=== PATIENT | male | born 1945 | race Two or more races ===

== ENCOUNTER 2022-08-04 05:30 | Day surgery (SDC) | payer OTHER ==
[~2022-08-04] VITALS: Ht 167.6 cm; Wt 72.6 kg
[~2022-08-04 05:30] MED LIST: CELEBREX50 MG PO; HYDROXYCHLOROQUINE; JANUMET 50-1,01 EACH PO; ORAPRED ODT10 MG PO; SYNTHROID100 MCG PO; TREXALL5 MG PO
[2022-08-04] MEDS ORDERED: OXYC1TAB9 PO (09:58)
== END 2022-08-04 12:30 | disposition home or self-care (01) ==
LOC: CIR.AMB 05:30
PROVIDERS: ATTEND Surgery
DX: K64.8 Other hemorrhoids (principal); K64.4 Residual hemorrhoidal skin tags; K62.5 Hemorrhage of anus and rectum; Z86.16 Personal history of COVID-19; E11.9 Type 2 diabetes mellitus without complications; E03.9 Hypothyroidism, unspecified

== ENCOUNTER 2023-08-22 11:15 | Inpatient (IN) | payer OTHER ==
[~2023-08-22] VITALS: Ht 167.6 cm; Wt 68.9 kg
[~2023-08-22 11:15] MED LIST changes: +OXYC1TAB9 PO
[2023-08-29] MEDS ORDERED: METRONIDAZOLE/SODIUM CHLORIDE 500 MG/100 ML PIGGYBACK IV ONE ×2 (06:52→08:15)
[2023-08-29] MEDS ORDERED: CEFTRIAXONE SODIUM 2,000 MG VIAL ONE (06:52)
[2023-08-29] MEDS ORDERED: LIDOCAINE HCL/EPINEPHRINE 10MG/ML 1% 50ML IJ ONE ×2 (07:00→08:15)
[2023-08-29] MEDS ORDERED: BUPIVACAINE HCL/PF 0.5% 30ML ML ONE (07:00)
[2023-08-29] MEDS ORDERED: HYDROCORTISONE SODIUM SUCC/PF 100 MG VIAL ONE ×2 (07:07→13:07)
[2023-08-29] MEDS ORDERED: CEFTRIAXONE SODIUM 2,000 MG VIAL IV ONE (08:15)
[2023-08-29] MEDS ORDERED: BUPIVACAINE HCL 30 ML VIAL IJ ONE (08:15)
[2023-08-29] MEDS ORDERED: HYDROCORTISONE SODIUM SUCC/PF 100 MG VIAL IV ONE (08:15)
[2023-08-29] MEDS ORDERED: OxyCODONE HCL 5 MG TABLET (ROXICODONE) PO PRN (09:15)
[2023-08-29] MEDS ORDERED: ONDANSETRON HCL 2 MG/ML VIAL IV PRN (09:15)
[2023-08-29] MEDS ORDERED: RINGERS SOLUTION,LACTATED 1,000 ML IV SCH (09:15)
[2023-08-29] MEDS ORDERED: DEXTROSE 50 % IN WATER 0.5 G/ML DISP.SYRIN IV PRN ×2 (09:15→11:00)
[2023-08-29] MEDS ORDERED: INSULIN LISPRO 1,000 UNIT/10 ML UNITS SUBCUTANEO PRN ×2 (09:15→11:00)
[2023-08-29] MEDS ORDERED: MORPHINE SULFATE 4 MG/ML CARTRIDGE IV PRN (09:15)
[2023-08-29] MEDS ORDERED: MORPHINE SULFATE 4 MG/ML VIAL IV ONE (11:35)
[2023-08-29] MEDS ORDERED: ONDANSETRON HCL 2 MG/ML VIAL ONE (11:38)
[2023-08-29 11:55] LABS: HEMATOCRIT 28.5 % (39.0-48.0); HEMOGLOBIN 9.4 g/dL (13-16.00); MEAN CORPUSCULAR HEMOGLOBIN 26.4 pg (27.00-32.0); PLATELET COUNT 392 K/uL (150-450); RED BLOOD COUNT 3.56 M/uL (4.00-6.00); RED CELL DISTRIBUTION WIDTH 19.8 % (11.5-14.5)
[2023-08-29] MEDS ORDERED: HYDROCORTISONE SODIUM SUCC/PF 100 MG VIAL IV SCH (12:00)
[2023-08-29 12:33] LABS: ABG PH 7.359 (7.35-7.45); ABG PO2 64.7 mmHg (80-100); ABG pCO2 43.5 mmHg (35-45); BASE EXCESS -1.6 mmol/l; SaO2 91.2 %; Tco2 25.3 mmol/l; allen test SATISFACTORY; o2 21 %; puncture site RADIAL LEFT
[2023-08-29 12:37] LABS: ALBUMIN 2.5 gm/dL (3.4-5.0); CALCIUM 8.7 mg/dL (8.5-10.1); GFR 72.65; MAGNESIUM 1.8 mg/dL (1.8-2.4); PHOSPHOROUS 3.8 mg/dL (2.5-4.9); POTASSIUM 4.72 mEq/L (3.5-5.1)
[2023-08-29] MEDS ORDERED: HYOSCYAMINE SULFATE 0.125 MG TAB.SUBL SL SCH (13:00)
[2023-08-29] MEDS ORDERED: HYOSCYAMINE SULFATE 0.125 MG TAB.SUBL ONE (13:26)
[2023-08-29] MEDS ORDERED: ACETAMINOPHEN 500 MG GEL..CAP PO SCH (14:00)
[2023-08-29] MEDS ORDERED: POLYETHYLENE GLYCOL 3350 17 GM BLIST.PACK PO SCH (17:00)
[2023-08-29] MEDS ORDERED: GABAPENTIN 300 MG CAPSULE PO SCH (17:00)
[2023-08-29 17:19] LABS: ABG PH 7.379 (7.35-7.45); ABG PO2 102.4 mmHg (80-100); ABG pCO2 43.1 mmHg (35-45); BASE EXCESS -0.4 mmol/l; BICARBONATE 24.9 mmol/l (23-25); SaO2 97.7 %; Tco2 26.2 mmol/l
[2023-08-29 17:20] LABS: allen test SATISFACTORY; o2 28 %; puncture site RADIAL RIGHT
[2023-08-29] MEDS ORDERED: CELECOXIB 200 MG CAPSULE PO SCH (21:00)
[2023-08-29] MEDS ORDERED: FAMOTIDINE/PF 20 MG/2 ML VIAL IV PUSH SCH (21:00)
[2023-08-29] MEDS ORDERED: TAMSULOSIN HCL 0.4 MG CAP PO SCH (21:00)
[2023-08-30] MEDS ORDERED: PATIENTS OWN MEDICATION (MEDICAMENTO EN PISO) PO SCH (06:00)
[2023-08-30 06:17] LABS: HEMATOCRIT 27.3 % (39.0-48.0); MEAN CELL VOLUME 81.5 fL (80.0-100.00); MEAN CORPUSCULAR HGB CONC 32.4 g/dl (32.0-36.0); PLATELET COUNT 370 K/uL (150-450); RED BLOOD COUNT 3.35 M/uL (4.00-6.00)
[2023-08-30 06:41] LABS: MEAN CORPUSCULAR HEMOGLOBIN 26.2 pg (27.00-32.0)
[2023-08-30 06:42] LABS: HEMOGLOBIN 8.8 g/dL (13-16.00)
[2023-08-30 06:57] LABS: ALBUMIN 2.3 gm/dL (3.4-5.0); CALCIUM 8.6 mg/dL (8.5-10.1); CREATININE SERUM 0.91 mg/dL (0.70-1.30); MAGNESIUM 1.8 mg/dL (1.8-2.4); PHOSPHOROUS 3.3 mg/dL (2.5-4.9); POTASSIUM 4.67 mEq/L (3.5-5.1)
[2023-08-30] MEDS ORDERED: Cyanocobalamin/Mecobalamin 1 TAB.SL SL SCH (09:00)
[2023-08-30] MEDS ORDERED: SOD FERRIC GLUC COMPLX/SUCROSE 62.5 MG in 0.9 % SODIUM CHLORIDE 50 ML IV SCH (09:00)
[2023-08-30] MEDS ORDERED: HYDROCORTISONE SODIUM SUCC/PF 100 MG VIAL IV SCH (12:00)
[2023-08-30] MEDS ORDERED: ENOXAPARIN SODIUM 40 MG/0.4 ML SYRINGE SUBCUTANEO SCH (17:00)
[2023-08-31 08:07] LABS: HEMATOCRIT 25.9 % (39.0-48.0); MEAN CELL VOLUME 80.4 fL (80.0-100.00); MEAN CORPUSCULAR HGB CONC 33.7 g/dl (32.0-36.0); PLATELET COUNT 350 K/uL (150-450); RED BLOOD COUNT 3.22 M/uL (4.00-6.00); RED CELL DISTRIBUTION WIDTH 19.9 % (11.5-14.5)
[2023-08-31 08:10] LABS: HEMOGLOBIN 8.7 g/dL (13-16.00)
[2023-08-31 08:24] LABS: CALCIUM 8.5 mg/dL (8.5-10.1); CREATININE SERUM 0.77 mg/dL (0.70-1.30); GFR 98.23; PHOSPHOROUS 2.4 mg/dL (2.5-4.9); POTASSIUM 5.08 mEq/L (3.5-5.1)
[2023-08-31] MEDS ORDERED: ENOXAPARIN SODIUM 40 MG/0.4 ML SYRINGE SUBCUTANEO SCH (09:00)
[2023-08-31] MEDS ORDERED: HYDROCORTISONE SODIUM SUCC/PF 100 MG VIAL IV SCH (21:00)
[2023-09-01] MEDS ORDERED: ACETAMINOPHEN500 M2 PO (09:03)
[2023-09-01] MEDS ORDERED: NEURONTIN300 MG PO (09:03)
== END 2023-09-01 10:10 | disposition home or self-care (01) | DRG 330 ==
LOC: O/R 08-29 07:15 → SURH 08-29 07:15
PROVIDERS: Internal Medicine Geriatric Medicine; ADMIT Surgery; ATTEND Surgery
PROC: 07BB4ZZ Excision of Mesenteric Lymphatic, Percutaneous Endoscopic Approach (ICD-10-PCS; 2023-08-29)
PROC: 4A12X4Z Monitoring of Cardiac Electrical Activity, External Approach (ICD-10-PCS; 2023-08-29)
PROC: 0DTF4ZZ Resection of Right Large Intestine, Percutaneous Endoscopic Approach (ICD-10-PCS; principal; 2023-08-29 13:30)
DX: C18.0 Malignant neoplasm of cecum (principal); K62.5 Hemorrhage of anus and rectum; K57.30 Diverticulosis of large intestine without perforation or abscess without bleeding; R59.0 Localized enlarged lymph nodes